=== PATIENT | female | born 1985 | race Caucasian/White ===

== ENCOUNTER 2016-09-15 11:33 | Emergency (ER) | payer MEDICARE, MEDICAID ==
[~2016-09-15] VITALS: Ht 167.6 cm; Wt 119.7 kg
[~2016-09-15 11:33] MED LIST: ABILIFY10 MG PO; ABILIFY2 MG PO; ABILIFY5 MG PO; AMITRIPTYLINE25 MG PO; ANAPROX DS550 MG PO; APRI 0.15 MG-0.1 TAB PO; ATARAX25 MG PO; AUGMENTIN 875 M1 TAB PO; AUGMENTIN 875875 MG PO; BENTYL10 MG PO; BENTYL20 MG PO; CALCIUM500 MG PO; CELEXA20 MG PO; CIPRO500 MG PO; CIPROFLOXACIN500 MG PO; CLARITIN10 MG PO; CONCERTA54 MG PO; DESOGEN 0.15 MG1 TAB; DEXILANT60 M1 PO; DIABETA,MICRO1.25 MG PO; DIABETA5 MG PO; DOXYCYCLINE MO100 MG PO; ERRIN0.35 M1 PO; HYDROCODONE BIT1 T11 PO; INVEGA3 MG PO; LAMICTAL100 MG PO; LAMICTAL200 MG PO; LATUDA20 MG PO; LOPRESSOR25 MG PO; LOPRESSOR50 MG PO; Lopressor25 MG PO; METFORMIN500 MG PO; METOPROLOL TARTRATE; Metformin Hydr500 MG PO; NAPROSYN375 MG PO; NAPROSYN500 MG PO; NATURE'S BLEND400 I1 PO; PERPHENAZINE; PREDNICOT10 MG PO; PREDNICOT20 MG PO; PREDNISONE10 MG PO; PROZAC10 MG PO; PROZAC20 MG PO; REMERON30 MG PO; ROBAXIN-750750 MG PO; SYNTHROID0.05 MG PO; TRAMADOL HCL50 MG PO; TRIAVIL; TRIAVIL PO; TYLENOL SINUS; ULTRAM50 MG PO; VISTARIL25 M1 PO; VITAMIN B COMPL1 CAP PO; VITAMIN D; VOLTAREN50 M1 PO; VYVANSE50 MG PO; ZOFRAN4 MG PO; ZOLOFT25 MG PO; ZYRTEC10 M3 PO; ZYRTEC10 MG PO; [UNRECOGNIZED DRUG - OTHER]; [UNRECOGNIZED DRUG - OTHER] PO
[2016-09-15 11:54] LABS: BILIRUBIN NEGATIVE (NEGATIVE); BLOOD 3+ (NEGATIVE); CLARITY SL CLOUDY (CLEAR); COLOR YELLOW (YELLOW); GLUCOSE NEGATIVE (NEGATIVE); KETONE NEGATIVE (NEGATIVE); LEUKO ESTERASE NEGATIVE (NEGATIVE); NITRITE NEGATIVE (NEGATIVE); PH 5.5 (5.0-9.0); PROTEIN NEGATIVE (NEGATIVE); SPECIFIC GRAVITY 1.025 (1.005-1.030); UROBILINOGEN 0.2 E.U./dl (0.2-1.0)
[2016-09-15 12:01] LABS: BACTERIA 1+; URINE REFLEX COMMENT YES (NO)
[2016-09-15 12:14] LABS: BASO % 0.3 % (0.0-1.0); EOS # 0.2 10*3/uL (0.0-0.4); EOS % 2.3 % (1.0-4.0); HEMATOCRIT 38.9 % (37.0-47.0); HEMOGLOBIN 13.7 g/dl (12.0-16.0); LYMPH # 1.9 10*3/uL (1.3-4.4); LYMPH % 27.8 % (27.0-41.0); MEAN CELL VOLUME 92.4 fl (81.0-99.0); MEAN CORPUSCULAR HGB 32.5 pg (27.0-31.0); MEAN CORPUSCULAR HGB CONC 35.2 g/dl (33.0-37.0); MEAN PLATELET VOLUME 9.4 fl (9.6-12.3); MONO # 0.3 10*3/uL (0.1-1.0); MONO % 4.5 % (3.0-9.0); NEUT # 4.5 10*3/uL (2.3-7.9); NEUT % 64.8 % (47.0-73.0); PLATELET COUNT AUTOMATED 248 10*3/uL (130-400); RED BLOOD COUNT 4.21 10*6/uL (4.10-5.10); RED CELL DISTRI WIDTH 11.9 % (0-14.5); WHITE BLOOD COUNT 6.9 10*3/uL (4.8-10.8)
[2016-09-15 12:30] LABS: ALBUMIN 3.5 gm/dl (3.1-4.5); ALKALINE PHOSPHATASE 92 U/L (45-117); BILIRUBIN, TOTAL 0.3 mg/dl (0.2-1.0); BUN 8 mg/dl (7-24); CARBON DIOXIDE 27 mmol/L (21-32); CHLORIDE 108 mmol/L (98-107); EST GLOM FILT AFRICAN AMERICAN > 60 ml/min; GLUCOSE 125 mg/dL (65-99); SGOT/AST 23 IU/L (3-35); SGPT/ALT 38 U/L (12-78); SODIUM 143 mmol/L (136-145); TOTAL PROTEIN 6.9 gm/dL (6.4-8.2)
== END 2016-09-15 14:38 | disposition home or self-care (01) ==
LOC: ED 11:33
PROVIDERS: Nurse Practitioner Family
DX: R10.11 Right upper quadrant pain (principal); Z90.49 Acquired absence of other specified parts of digestive tract; Z91.030 Bee allergy status

== ENCOUNTER → 2017-02-11 | Outpatient (CLI) | payer MEDICARE, MEDICAID | END | disposition home or self-care (01) | LOC: US 07:03 | DX: E11.9 Type 2 diabetes mellitus without complications (principal); K76.0 Fatty (change of) liver, not elsewhere classified; R94.5 Abnormal results of liver function studies; R79.9 Abnormal finding of blood chemistry, unspecified; Z90.49 Acquired absence of other specified parts of digestive tract ==

== ENCOUNTER 2017-08-17 18:05 | Emergency (ER) | payer MEDICARE, MEDICAID ==
[~2017-08-17] VITALS: Ht 167.6 cm; Wt 127.0 kg
[2017-08-17 19:03] LABS: BILIRUBIN NEGATIVE (NEGATIVE); BLOOD NEGATIVE (NEGATIVE); CLARITY CLEAR (CLEAR); COLOR YELLOW (YELLOW); GLUCOSE NEGATIVE (NEGATIVE); KETONE NEGATIVE (NEGATIVE); LEUKO ESTERASE NEGATIVE (NEGATIVE); NITRITE NEGATIVE (NEGATIVE); PH 5.5 (5.0-9.0); SPECIFIC GRAVITY >= 1.030 (1.005-1.030); UROBILINOGEN 0.2 E.U./dl (0.2-1.0)
[2017-08-17 19:07] LABS: BASO % 0.1 % (0.0-1.0); EOS # 0.2 10*3/uL (0.0-0.4); EOS % 2.8 % (1.0-4.0); HEMATOCRIT 40.9 % (37.0-47.0); HEMOGLOBIN 13.9 g/dl (12.0-16.0); LYMPH # 2.4 10*3/uL (1.3-4.4); MEAN CELL VOLUME 93.2 fl (81.0-99.0); MEAN CORPUSCULAR HGB 31.7 pg (27.0-31.0); MEAN PLATELET VOLUME 9.4 fl (9.6-12.3); MONO # 0.4 10*3/uL (0.1-1.0); MONO % 5.5 % (3.0-9.0); NEUT # 3.7 10*3/uL (2.3-7.9); NEUT % 55.3 % (47.0-73.0); PLATELET COUNT AUTOMATED 228 10*3/uL (130-400); RED BLOOD COUNT 4.39 10*6/uL (4.10-5.10); RED CELL DISTRI WIDTH 12.1 % (0-14.5); WHITE BLOOD COUNT 6.7 10*3/uL (4.8-10.8)
[2017-08-17 19:20] LABS: BACTERIA 3+
[2017-08-17 19:21] LABS: ALBUMIN 3.5 gm/dl (3.1-4.5); ALKALINE PHOSPHATASE 91 U/L (45-117); BUN 12 mg/dl (7-24); CHLORIDE 106 mmol/L (98-107); CREATININE 0.64 mg/dL (0.55-1.02); EPITHELIAL CELLS 21-30; LIPASE 172 U/L (73-393); POTASSIUM 3.8 mmol/L (3.5-5.1); SGOT/AST 47 IU/L (3-35); SGPT/ALT 69 U/L (12-78); SODIUM 140 mmol/L (136-145)
[2017-08-17] MEDS ORDERED: Motrin,Rufen800 MG PO (20:07)
[2017-08-17] MEDS ORDERED: ZOFRAN ODT4 MG SL (20:07)
== END 2017-08-17 20:19 | disposition home or self-care (01) ==
LOC: ED 18:05
PROVIDERS: Physician Assistant
DX: K76.0 Fatty (change of) liver, not elsewhere classified (principal); R16.1 Splenomegaly, not elsewhere classified; K21.9 Gastro-esophageal reflux disease without esophagitis; E11.9 Type 2 diabetes mellitus without complications; Z91.030 Bee allergy status; Z90.49 Acquired absence of other specified parts of digestive tract

== ENCOUNTER 2017-10-28 19:50 | Emergency (ER) | payer MEDICARE, MEDICAID ==
[~2017-10-28] VITALS: Ht 167.6 cm; Wt 125.2 kg
[~2017-10-28 19:50] MED LIST changes: +Motrin,Rufen800 MG PO; +ZOFRAN ODT4 MG SL
[2017-10-28 21:29] LABS: BASO % 0.2 % (0.0-1.0); EOS # 0.9 10*3/uL (0.0-0.4); EOS % 8.4 % (1.0-4.0); HEMATOCRIT 44.1 % (37.0-47.0); HEMOGLOBIN 15.2 g/dl (12.0-16.0); LYMPH # 2.3 10*3/uL (1.3-4.4); LYMPH % 20.5 % (27.0-41.0); MEAN CELL VOLUME 91.5 fl (81.0-99.0); MEAN CORPUSCULAR HGB 31.5 pg (27.0-31.0); MEAN CORPUSCULAR HGB CONC 34.5 g/dl (33.0-37.0); MEAN PLATELET VOLUME 9.6 fl (9.6-12.3); MONO # 0.5 10*3/uL (0.1-1.0); MONO % 4.6 % (3.0-9.0); NEUT # 7.4 10*3/uL (2.3-7.9); PLATELET COUNT AUTOMATED 244 10*3/uL (130-400); RED BLOOD COUNT 4.82 10*6/uL (4.10-5.10); WHITE BLOOD COUNT 11.2 10*3/uL (4.8-10.8)
[2017-10-28 21:44] LABS: ALBUMIN 3.7 gm/dl (3.1-4.5); ALKALINE PHOSPHATASE 115 U/L (45-117); BUN 12 mg/dl (7-24); CHLORIDE 102 mmol/L (98-107); CREATININE 0.95 mg/dL (0.55-1.02); LIPASE 166 U/L (73-393); POTASSIUM 3.9 mmol/L (3.5-5.1); SGOT/AST 53 IU/L (3-35); SGPT/ALT 75 U/L (12-78); SODIUM 138 mmol/L (136-145); TOTAL PROTEIN 7.3 gm/dL (6.4-8.2)
[2017-10-28 21:48] LABS: BETA-HCG, QUANT < 1.0 mIU/mL (1-3)
[2017-10-28 22:11] LABS: BILIRUBIN NEGATIVE (NEGATIVE); BLOOD 2+ (NEGATIVE); COLOR YELLOW (YELLOW); GLUCOSE 2+ (NEGATIVE); KETONE NEGATIVE (NEGATIVE); LEUKO ESTERASE 1+ (NEGATIVE); NITRITE POSITIVE (NEGATIVE); PH 6.5 (5.0-9.0); UROBILINOGEN 0.2 E.U./dl (0.2-1.0)
[2017-10-28 22:30] LABS: BACTERIA 2+; CLARITY CLOUDY (CLEAR); EPITHELIAL CELLS TNTC; RBC 21-30 rbc/hpf (0-2); WBC 21-30 wbc/hpf (0-5)
[2017-10-29] MEDS ORDERED: REGLAN5 MG PO (01:02)
== END 2017-10-29 01:45 | disposition home or self-care (01) ==
LOC: ED 19:50
PROVIDERS: Emergency Medicine Emergency Medical Services
DX: R10.9 Unspecified abdominal pain (principal); M54.9 Dorsalgia, unspecified; R19.7 Diarrhea, unspecified; R11.0 Nausea; Z90.49 Acquired absence of other specified parts of digestive tract; Z87.442 Personal history of urinary calculi; Z91.030 Bee allergy status

== ENCOUNTER 2017-10-30 08:52 | Inpatient (IN) | payer MEDICARE, MEDICAID ==
[2017-10-30] VITALS (7 sets, daily range): BP systolic 108–136; BP diastolic 56–96
[~2017-10-30] VITALS: Ht 167.6 cm; Wt 129.4 kg
--- NOTE | ~2017-10-30 | EKG ---
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
--- NOTE | ~2017-10-30 | EKG ---
[place], [place] ELECTROCARDIOGRAM REPORT NAME: OLAF SILVA UNIT #: [id number] ROOM: 507 DOCTOR: SELMA DRAFT REPORT BIRTHDATE: [birth year] [facility] Test Date: 2017-10-31 Test Time: 20:57:22 Pat Name: OLAF SILVA Department: Room: [facility] 2 Gender: F Pull Up Hand: : 1985 Requested By: RUSTY YEUNG Order Number: [id number] Reading MD: Anuj Hussein MD Measurements Intervals [place] Rate: 114 P: 35 DC: 128 QRS: -6 QRSD: 86 T: 32 QT: 311 QTc: 429 Interpretive Statements Sinus tachycardia Baseline wander in lead(s) V1,V2,V5,V6 Compared to ECG 10/30/2017 09:21:01 Left ventricular hypertrophy no longer present Electronically Signed On 11-02-2017 18:52:06 PDT by Anuj Hussein MD CM:EKGRPT:ELECTROCARDIOGRAM REPORT [id number] RUSTY PEREZ DRAFT REPORT RUSTY YEUNG DO
[~2017-10-30 08:52] MED LIST changes: +REGLAN5 MG PO
[2017-10-30 09:26] LABS: BASO % 0.2 % (0.0-1.0); EOS # 0.3 10*3/uL (0.0-0.4); EOS % 3.5 % (1.0-4.0); HEMATOCRIT 41.3 % (37.0-47.0); HEMOGLOBIN 13.8 g/dl (12.0-16.0); LYMPH # 0.9 10*3/uL (1.3-4.4); LYMPH % 10.7 % (27.0-41.0); MEAN CELL VOLUME 94.5 fl (81.0-99.0); MEAN CORPUSCULAR HGB 31.6 pg (27.0-31.0); MEAN CORPUSCULAR HGB CONC 33.4 g/dl (33.0-37.0); MEAN PLATELET VOLUME 9.6 fl (9.6-12.3); MONO # 0.7 10*3/uL (0.1-1.0); MONO % 8.5 % (3.0-9.0); NEUT # 6.4 10*3/uL (2.3-7.9); NEUT % 76.6 % (47.0-73.0); PLATELET COUNT AUTOMATED 192 10*3/uL (130-400); RED BLOOD COUNT 4.37 10*6/uL (4.10-5.10); RED CELL DISTRI WIDTH 12.1 % (0-14.5); WHITE BLOOD COUNT 8.4 10*3/uL (4.8-10.8)
[2017-10-30 09:43] LABS: ALBUMIN 3.5 gm/dl (3.1-4.5); ALKALINE PHOSPHATASE 102 U/L (45-117); BUN 9 mg/dl (7-24); CHLORIDE 101 mmol/L (98-107); CREATININE 0.82 mg/dL (0.55-1.02); LIPASE 193 U/L (73-393); POTASSIUM 3.6 mmol/L (3.5-5.1); SGOT/AST 25 IU/L (3-35); SGPT/ALT 51 U/L (12-78); SODIUM 136 mmol/L (136-145); TOTAL PROTEIN 7.3 gm/dL (6.4-8.2)
[2017-10-30 09:45] LABS: TROPONIN I < 0.015 ng/ml (<0.045)
[2017-10-30 11:30] LABS: BILIRUBIN 1+ (NEGATIVE); BLOOD TRACE-INTACT (NEGATIVE); CLARITY CLOUDY (CLEAR); COLOR YELLOW (YELLOW); GLUCOSE TRACE (NEGATIVE); KETONE 2+ (NEGATIVE); LEUKO ESTERASE 1+ (NEGATIVE); NITRITE POSITIVE (NEGATIVE); SPECIFIC GRAVITY 1.025 (1.005-1.030)
[2017-10-30 11:39] LABS: BACTERIA TRACE; EPITHELIAL CELLS 21-30; RBC 0-2 rbc/hpf (0-2); WBC 41-50 wbc/hpf (0-5)
[2017-10-31] VITALS: BP 134/71
[2017-10-31 06:29] LABS: BASO % 0.2 % (0.0-1.0); EOS % 0.6 % (1.0-4.0); LYMPH # 0.8 10*3/uL (1.3-4.4); LYMPH % 16.6 % (27.0-41.0); MEAN CELL VOLUME 95.3 fl (81.0-99.0); MEAN CORPUSCULAR HGB 31.2 pg (27.0-31.0); MEAN CORPUSCULAR HGB CONC 32.8 g/dl (33.0-37.0); MEAN PLATELET VOLUME 10.1 fl (9.6-12.3); MONO # 0.6 10*3/uL (0.1-1.0); MONO % 11.3 % (3.0-9.0); NEUT # 3.4 10*3/uL (2.3-7.9); NEUT % 70.7 % (47.0-73.0); PLATELET COUNT AUTOMATED 147 10*3/uL (130-400); RED BLOOD COUNT 3.65 10*6/uL (4.10-5.10); RED CELL DISTRI WIDTH 12.3 % (0-14.5); WHITE BLOOD COUNT 4.9 10*3/uL (4.8-10.8)
[2017-10-31 06:35] LABS: HEMATOCRIT 34.8 % (37.0-47.0); HEMOGLOBIN 11.4 g/dl (12.0-16.0)
[2017-10-31 06:58] LABS: BUN 5 mg/dl (7-24); CHLORIDE 103 mmol/L (98-107); CHOLESTEROL 114 mg/dL (<200); CREATININE 0.66 mg/dL (0.55-1.02); FREE T4 0.97 ng/dl (0.76-1.46); HDL CHOLESTEROL 29 mg/dl (40-60); LDL CHOLESTEROL 62 mg/dL (9-159); PHOSPHOROUS 1.6 mg/dL (2.5-4.9); POTASSIUM 3.3 mmol/L (3.5-5.1); SODIUM 138 mmol/L (136-145); TRIGLYCERIDES 116 mg/dl (<150); VLDL CHOLESTEROL 23 mg/dL (6-40)
[2017-10-31 08:00] VITALS: BP 124/67
[2017-10-31 12:00] VITALS: BP 130/79
[2017-10-31 16:00] VITALS: BP 120/68
[2017-10-31 20:00] VITALS: BP 139/76
[2017-11-01] VITALS: BP 129/78
[2017-11-01 06:03] LABS: BASO % 0.3 % (0.0-1.0); EOS # 0.1 10*3/uL (0.0-0.4); EOS % 2.7 % (1.0-4.0); HEMATOCRIT 34.7 % (37.0-47.0); HEMOGLOBIN 11.3 g/dl (12.0-16.0); LYMPH % 31.7 % (27.0-41.0); MEAN CELL VOLUME 96.4 fl (81.0-99.0); MEAN CORPUSCULAR HGB 31.4 pg (27.0-31.0); MEAN CORPUSCULAR HGB CONC 32.6 g/dl (33.0-37.0); MEAN PLATELET VOLUME 9.5 fl (9.6-12.3); MONO # 0.4 10*3/uL (0.1-1.0); MONO % 11.3 % (3.0-9.0); NEUT # 1.8 10*3/uL (2.3-7.9); NEUT % 53.4 % (47.0-73.0); PLATELET COUNT AUTOMATED 147 10*3/uL (130-400); RED CELL DISTRI WIDTH 12.4 % (0-14.5); WHITE BLOOD COUNT 3.3 10*3/uL (4.8-10.8)
[2017-11-01 06:11] LABS: BUN 4 mg/dl (7-24); CHLORIDE 108 mmol/L (98-107); POTASSIUM 3.8 mmol/L (3.5-5.1); SODIUM 143 mmol/L (136-145)
[2017-11-01 08:00] VITALS: BP 126/81
[2017-11-01 12:00] VITALS: BP 125/72
[2017-11-01 16:00] VITALS: BP 107/67
[2017-11-01 20:00] VITALS: BP 127/84
[2017-11-02] VITALS: BP 142/85
[2017-11-02 06:20] LABS: BASO % 0.3 % (0.0-1.0); EOS # 0.1 10*3/uL (0.0-0.4); HEMATOCRIT 34.1 % (37.0-47.0); HEMOGLOBIN 11.4 g/dl (12.0-16.0); LYMPH % 28.3 % (27.0-41.0); MEAN CELL VOLUME 93.7 fl (81.0-99.0); MEAN CORPUSCULAR HGB 31.3 pg (27.0-31.0); MEAN CORPUSCULAR HGB CONC 33.4 g/dl (33.0-37.0); MEAN PLATELET VOLUME 9.7 fl (9.6-12.3); MONO # 0.3 10*3/uL (0.1-1.0); MONO % 9.2 % (3.0-9.0); NEUT # 2.1 10*3/uL (2.3-7.9); NEUT % 59.9 % (47.0-73.0); PLATELET COUNT AUTOMATED 165 10*3/uL (130-400); RED BLOOD COUNT 3.64 10*6/uL (4.10-5.10); RED CELL DISTRI WIDTH 12.1 % (0-14.5); WHITE BLOOD COUNT 3.5 10*3/uL (4.8-10.8)
[2017-11-02 06:44] LABS: BUN 6 mg/dl (7-24); CHLORIDE 106 mmol/L (98-107); CREATININE 0.52 mg/dL (0.55-1.02); POTASSIUM 3.6 mmol/L (3.5-5.1); SODIUM 139 mmol/L (136-145)
[2017-11-02 08:00] VITALS: BP 122/61
[2017-11-02 12:00] VITALS: BP 139/82
[2017-11-02] MEDS ORDERED: CIPRO500 MG PO (13:39)
[2017-11-02] MEDS ORDERED: VITAMIN D31000 UNI1 PO (13:39)
== END 2017-11-02 15:10 | disposition home or self-care (01) | DRG 872 ==
LOC: ED 08:52 → 5E 11:48 → EDHOLD 11:48 → 5E 11:58
PROVIDERS: Family Medicine; Nurse Practitioner Family; Student in an Organized Health Care Education/Training Program
DX: A41.9 Sepsis, unspecified organism (principal); K76.0 Fatty (change of) liver, not elsewhere classified; E66.01 Morbid (severe) obesity due to excess calories; N30.01 Acute cystitis with hematuria; Z68.42 Body mass index [BMI] 45.0-49.9, adult; E28.2 Polycystic ovarian syndrome; R00.0 Tachycardia, unspecified; R73.9 Hyperglycemia, unspecified; F41.9 Anxiety disorder, unspecified; R06.82 Tachypnea, not elsewhere classified; F31.9 Bipolar disorder, unspecified; R73.03 Prediabetes; E83.42 Hypomagnesemia; E83.39 Other disorders of phosphorus metabolism; E87.6 Hypokalemia; B27.90 Infectious mononucleosis, unspecified without complication; Z79.899 Other long term (current) drug therapy; Z87.891 Personal history of nicotine dependence; Z90.49 Acquired absence of other specified parts of digestive tract; Z82.49 Family history of ischemic heart disease and other diseases of the circulatory system; Z91.09 Other allergy status, other than to drugs and biological substances; Z87.442 Personal history of urinary calculi

== ENCOUNTER → 2020-01-06 | Outpatient (CLI) | payer OTHER ==
[~2020-01-06] MED LIST changes: +VITAMIN D31000 UNI1 PO
[2020-01-06 10:12] LABS: BASO % 0.2 % (0.0-1.0); EOS # 0.2 10*3/uL (0.0-0.4); EOS % 3.4 % (1.0-4.0); HEMATOCRIT 41.5 % (37.0-47.0); LYMPH # 1.5 10*3/uL (1.3-4.4); LYMPH % 34.7 % (27.0-41.0); MEAN CORPUSCULAR HGB 32.4 pg (27.0-31.0); MEAN CORPUSCULAR HGB CONC 35.2 g/dl (33.0-37.0); MEAN PLATELET VOLUME 9.7 fl (9.6-12.3); MONO # 0.3 10*3/uL (0.1-1.0); MONO % 6.1 % (3.0-9.0); NEUT # 2.4 10*3/uL (2.3-7.9); NEUT % 55.1 % (47.0-73.0); PLATELET COUNT AUTOMATED 200 10*3/uL (130-400); RED BLOOD COUNT 4.51 10*6/uL (4.10-5.10); RED CELL DISTRI WIDTH 12.2 % (0-14.5); WHITE BLOOD COUNT 4.4 10*3/uL (4.8-10.8)
[2020-01-06 10:30] LABS: ALBUMIN 3.5 gm/dl (3.1-4.5); ALKALINE PHOSPHATASE 113 U/L (45-117); BUN 11 mg/dl (7-24); CHLORIDE 108 mmol/L (98-107); CHOLESTEROL 184 mg/dL (<200); CREATININE 0.59 mg/dL (0.55-1.02); HDL CHOLESTEROL 38 mg/dl (40-60); LDL CHOLESTEROL 109 mg/dL (9-159); POTASSIUM 3.7 mmol/L (3.5-5.1); SGOT/AST 85 IU/L (3-35); SGPT/ALT 86 U/L (12-78); SODIUM 137 mmol/L (136-145); TOTAL PROTEIN 7.1 gm/dL (6.4-8.2); TRIGLYCERIDES 185 mg/dl (<150); VLDL CHOLESTEROL 37 mg/dL (6-40)
[2020-01-06 10:35] LABS: FREE T4 1.09 ng/dl (0.76-1.46)
[2020-01-06 11:49] LABS: VITAMIN D, 25-HYDROXY 34.1 ng/mL (30-100)
== END | disposition home or self-care (01) ==
LOC: LAB 09:22
PROVIDERS: ATTEND Internal Medicine
DX: Z00.00 Encounter for general adult medical examination without abnormal findings (principal); E11.9 Type 2 diabetes mellitus without complications; E55.9 Vitamin D deficiency, unspecified; Z13.220 Encounter for screening for lipoid disorders; Z13.21 Encounter for screening for nutritional disorder; Z13.1 Encounter for screening for diabetes mellitus